=== PATIENT | female | born 1995 | race Caucasian/White ===

== ENCOUNTER 2017-01-26 08:40 | Emergency (ER) | payer BC, OTHER ==
[2017-01-26 08:45] VITALS: BP 105/60
--- NOTE | 2017-01-26 09:40 | RAD ---
HISTORY: Right knee pain, injury COMPARISONS: October 22, 2014 VIEWS: 4, Frontal, lateral, axial, and oblique views of the right knee FINDINGS: BONE DENSITY: Normal. BONES: There is postsurgical change to the distal femur and proximal tibia. JOINTS: There is no arthropathy. ALIGNMENT: There is no dislocation. SOFT TISSUES: Unremarkable. OTHER FINDINGS: None. IMPRESSION: POSTSURGICAL CHANGE. NO ACUTE OSSEOUS INJURY. IF SYMPTOMS PERSIST, RECOMMEND REPEAT IMAGING.
--- NOTE | 2017-01-26 09:54 | ED ---
Lower Extremity - HPI Summary HPI Summary: 21 female presents with complaints of right knee pain after walking down stairs and feeling it buckle/give out, yesterday 01/25/17. She states the pain is better when resting however hurts worst when bearing weight and walking. Pain is anterior and feels sharp and like pressure. Has FROM. ADmits to swelling. Has been icing, elevating and taking Aleve. Last dose of Aleve was at 7am this morning. States she has had multiple surgeries on both knees. Right knee surgeries consist of ACL repair, revision and meniscus removal years ago. States the buckling sensation has not occurred for the past couple of years since her last surgery. She denies numbness/tingling. Is able to bear weight. No other injuries or complaints. Did not fall or hit her head. No PMHx. - History of Current Complaint Chief Complaint: EDExtremityLower Stated Complaint: RIGHT KNEE PAIN Time Seen by Provider: 01/26/17 08:49 Hx Obtained From: Patient, Family/Parts Salesperson - mother Mechanism Of Injury: Twisted - buckled Onset of Pain: Immediate Onset/Duration: Days - 1 Severity Initially: Moderate Severity Currently: Moderate Pain Intensity: 8 Pain Scale Used: 0-10 Numeric - with walking, 2 when resting and sitting Timing: Constant - with walking/bearing weight Location: Is Discrete @ - right anterior/diffuse knee Character Of Pain: Sharp, Aching, Stiffness - feels as though it will "give out " Associated Signs And Symptoms: Positive: Swelling, Knee Pain Aggravating Factor(s): Standing, Ambulation Alleviating Factor(s): Rest, Elevation, Ice Able to Bear Weight: Yes - Allergies/Home Medications Allergies/Adverse Reactions: Allergies Allergy/AdvReac Type Severity Reaction Status Date / Time No Known Allergies Allergy Verified 05/14/14 10:16 PMH/Surg Hx/FS Hx/Imm Hx Endocrine/Hematology History: Denies: Hx Diabetes Cardiovascular History: Denies: Hx Hypertension, Hx Pacemaker/ICD History: Denies: Hx Renal Disease Musculoskeletal History: Reports: Hx Orthopedic Injury - b/l knees Sensory History: Denies: Hx Hearing Aid Psychiatric History: Denies: Hx Panic Disorder - Surgical History Surgery Procedure, Year, and Place: 02/05/14 - Rt KNEE ACL RECON, Meniscus removal, ACL revision. 05/2009 - Lt ACL RECON - Immunization History Immunizations Up to Date: Yes Infectious Disease History: No Infectious Disease History: Denies: Traveled Outside the [place] in Last 30 Days - Family History Known Family History: Positive: None - Social History Alcohol Use: Rare Substance Use Type: Reports: None Smoking Status (MU): Never Smoked Tobacco Review of Systems Constitutional: Negative Respiratory: Negative Gastrointestinal: Negative Positive: Arthralgia, Myalgia - right knee, Edema Skin: Negative Neurological: Negative All Other Systems Reviewed And Are Negative: Yes Physical Exam Triage Information Reviewed: Yes Vital Signs On Initial Exam: Initial Vitals Temp Pulse Resp BP Pulse Ox 98.3 F 73 16 105/60 100 01/26/17 08:42 01/26/17 08:42 01/26/17 08:42 01/26/17 08:42 01/26/17 08:42 Vital Signs Reviewed: Yes Appearance: Positive: Well-Appearing, No Pain Distress, Well-Nourished Skin: Positive: Warm, Skin Color Reflects Adequate Perfusion, Dry, Other - no ecchymosis appreciated. Negative: Cold, Numb, Cyanosis @, Diaphoretic Head/Face: Positive: Normal Head/Face Inspection Eyes: Positive: Normal, Conjunctiva Clear ENT: Positive: Hearing grossly normal Neck: Positive: Supple, Nontender, No Lymphadenopathy Respiratory/Lung Sounds: Positive: Clear to Auscultation, Breath Sounds Present. Negative: Rales, Rhonchi, Wheezes Cardiovascular: Positive: Normal, RRR, Pulses are Symmetrical in both Upper and Lower Extremities - 2+. Negative: Murmur, Rub Musculoskeletal: Positive: Strength/ROM Intact, Pain @ - right anterior knee with bearing weight, Edema Right - very minimal anterior right knee when compared to left, Other - no ecchymosis, step off, obvious deformity or crepitus. Negative: Limited @, Interruption @, Matthew Sign Left, Matthew Sign Right, Edema Left Neurological: Positive: Normal, Sensory/Motor Intact - sensation normal and intact, Alert, Oriented to Person Place, Time, CN Intact II-III, Reflexes Intact - not assessed on right patella due to pain, NV Bundle Intact Distally, Normal Gait - with limp, favoring left side Psychiatric: Positive: Affect/Mood Appropriate AVPU Assessment: Alert Diagnostics - Vital Signs Vital Signs Temp Pulse Resp BP Pulse Ox 01/26/17 08:45 98.3 F 73 16 105/60 100 07/08/17 08:42 98.3 F 73 16 105/60 100 - Laboratory Lab Statement: Any lab studies that have been ordered have been reviewed, and results considered in the medical decision making process. - Radiology knee right Xray Interpretation: No Acute Changes - POSTSURGICAL CHANGE. NO ACUTE OSSEOUS INJURY. IF SYMPTOMS PERSIST, RECOMMEND REPEAT IMAGING. Radiology Interpretation Completed By: Radiologist Lower Extremity Course/Dx - Course Course Of Treatment: Did not want pain management at this time. Given knee immobilizer and ice. X-ray obtained and negative. Patient and mother requesting MRI however explained the process of obtaining an MRI. Continue RICE and NSAIDs. Follow up with [facility] for further imaging and evaluation if symptoms persist. Aware of worsening signs and symptoms to watch out for. - Diagnoses Differential Diagnosis/HQI/PQRI: Positive: Contusion, Dislocation, Fracture ( Closed), Sprain, Strain, Other - ligamentous damage Provider Diagnoses: Sprain of right knee Discharge - Discharge Plan Condition: Stable Disposition: HOME Patient Education Materials: Knee Sprain (ED) Referrals: [facility] [Primary Care Provider] - Rae Hester MD [Medical Doctor] - Additional Instructions: Continue icing, elevating and resting your knee. Use pain as your guide. Continue Aleve for pain and inflammation. Follow up with PCP for further imaging and evaluation. IF symptoms worsen or new symptoms develop please seek medical attention promptly.
== END 2017-01-26 10:13 | disposition home or self-care (01) ==
LOC: ED 08:40
DX: S83.91XA Sprain of unspecified site of right knee, initial encounter (principal); X50.9XXA Other and unspecified overexertion or strenuous movements or postures, initial encounter; Y93.89 Activity, other specified; Y92.9 Unspecified place or not applicable
CPT/HCPCS: 99282

== ENCOUNTER 2018-06-02 10:30 | Emergency (ER) | payer BC ==
[2018-06-02 10:40] VITALS: BP 123/70
--- NOTE | 2018-06-02 12:04 | UC ---
Abdominal Pain Female HPI - HPI Summary HPI Summary: Patient presents with an unremarkable past medical history. She presents today with 2 day onset pain surrounding her umbilicus. She states the pain is intermittent sharp stabbing pain that is worse after she eats, and also notes some discomfort with urination. She also complains of bloating, and it very gassy. She notes normal BM's. She denies any abnormal vaginal discharge, or bleeding. She denies fever, chills, nausea, vomiting, diarrhea. She states she was seen in the walk-in in [place] and reported pain in the abdomen at that time. She states she was treated for sinus infection that she also was seen for and discharged home with watchful waiting. - History of Current Complaint Chief Complaint: UCAbdominalPain Stated Complaint: STOMACH PAIN Time Seen by Provider: 06/02/18 11:14 Hx Obtained From: Patient Onset/Duration: Gradual Onset, Lasting Days Timing: Intermittent Episodes Lasting: Severity Initially: Mild Severity Currently: Moderate Pain Intensity: 2 Pain Scale Used: 0-10 Numeric Location: Discrete At: RLQ, Other - harsh-umbilical Character: Sharp Aggravating Factor(s): Food, Other: - palpation, at times with urination Allergies/Adverse Reactions: Allergies Allergy/AdvReac Type Severity Reaction Status Date / Time acetaminophen [From Percocet] Allergy Hallucinati Verified 06/02/18 10:41 ons oxycodone [From Percocet] Allergy Hallucinati Verified 06/02/18 10:41 ons Home Medications: Home Medications Azithromycin TAB* [Zithromax TAB (Z-ANJU) 250 mg #6 tabs] 250 mg PO DAILY [History Confirmed 06/02/18] Control 1 tab 06/02/18 [History] L.acidoph,Paracasei, B.lactis [Probiotic] 1 each PO 06/02/18 [History] LoraTADine TAB(NF) [Claritin 10 MG TAB(NF)] 10 mg PO DAILY 06/02/18 [History Confirmed 06/02/18] Spironolactone 50 mg PO 06/02/18 [History] PMH/Surg Hx/FS Hx/Imm Hx Previously Healthy: Yes - Surgical History Surgical History: Yes Surgery Procedure, Year, and Place: 02/05/14 - Rt KNEE ACL RECON, Meniscus removal, ACL revision. 05/2009 - Lt ACL RECON - Family History Known Family History: Positive: None - Social History Occupation: Student Lives: Alone Alcohol Use: Weekly Substance Use Type: None Smoking Status (MU): Never Smoked Tobacco Review of Systems All Other Systems Reviewed And Are Negative: Yes Constitutional: Positive: Negative Skin: Positive: Negative Eyes: Positive: Negative ENT: Positive: Negative Respiratory: Positive: Negative Cardiovascular: Positive: Negative Gastrointestinal: Positive: Abdominal Pain Genitourinary: Positive: Negative Motor: Positive: Negative Neurovascular: Positive: Negative Musculoskeletal: Positive: Negative Neurological: Positive: Negative Psychological: Positive: Negative Physical Exam Triage Information Reviewed: Yes Appearance: Well-Appearing Vital Signs: Initial Vital Signs Temp 97.7 F 06/02/18 10:37 Pulse 106 06/02/18 10:37 Resp 18 06/02/18 10:37 BP 123/70 06/02/18 10:37 Pulse Ox 99 06/02/18 10:37 Vital Signs Reviewed: Yes Eye Exam: Normal ENT Exam: Normal Neck exam: Normal Neck: Positive: 1 Respiratory Exam: Normal Cardiovascular Exam: Normal Abdomen Description: Positive: McBurney's Point Tenderness Bowel Sounds: Positive: Hypoactive Musculoskeletal Exam: Normal Neurological Exam: Normal Psychological Exam: Normal Skin Exam: Normal Abd Pain Female Course/Dx - Course Course Of Treatment: Patient presents with 2 day onset complaints of harsh- umbilical pain. On exam today her pulse rate is 109, and she had a positive McBurneys sign. She was referred to [facility], and declined ambulance transport. Report was call to Dr. Heredia in the ER, patient will drive directly to ER. At the time of discharge she was stable. - Differential Dx/Diagnosis Differential Diagnosis: Appendicitis, Ovarian Cyst, Pelvic Inflammatory Disease , Urinary Tract Infection Provider Diagnoses: abdominal pain. appendicitis. ovarian cyst. uti Discharge - Sign-Out/Discharge Documenting (check all that apply): Patient Departure All imaging exams completed and their final reports reviewed: No Studies - Discharge Plan Condition: Stable Disposition: TRANS HIGHER LVL OF CARE FAC Patient Education Materials: Acute Abdominal Pain (DC) Referrals: No Primary Care Phys,NOPCP [Primary Care Provider] - Additional Instructions: Go directly to the [facility] - Billing Disposition and Condition Condition: STABLE Disposition: Trans Higher Lvl of Care Fac - Attestation Statements Scribe Documentation Reviewed: No Provider Attestation: Per institutional requirements, I have reviewed the chart, however, I was not consulted specifically or made aware of this patient by the midlevel provider. I did not personally evaluate, interact with , or disposition this patient.
== END 2018-06-02 11:57 | disposition short-term general hospital (02) ==
LOC: UCEAST 10:30
DX: K37 Unspecified appendicitis (principal); N83.209 Unspecified ovarian cyst, unspecified side; N39.0 Urinary tract infection, site not specified; R10.9 Unspecified abdominal pain; Z88.6 Allergy status to analgesic agent; Z88.5 Allergy status to narcotic agent
CPT/HCPCS: 99212; G0463